=== PATIENT | female | born 1980 | race Two or more races ===

== ENCOUNTER 2019-02-10 11:51 | Emergency (ER) | payer MEDICAID ==
[~2019-02-10] VITALS: Ht 162.6 cm; Wt 70.3 kg
[2019-02-10 12:15] VITALS: BP 117/76
--- NOTE | 2019-02-10 12:41 | NUR ---
ED Nurse Note: pt A&Ox4 speaking in clear sentences walked in with son c/o epigastric pain and diahhrea ,chills for 2 days ermd eval done sl established ivf up infusing urine sent to lab ekg done will monitor.
[2019-02-10 12:59] LABS: APPEARANCE,URINE CLEAR; BILIRUBIN, URINE NEGATIVE (NEGATIVE); GLUCOSE, URINE (UA) NEGATIVE (NEGATIVE); KETONES,URINE 4+ (NEGATIVE); LEUKOCYTE ESTERASE ,URINE 1+ (NEGATIVE); NITRITE,URINE NEGATIVE (NEGATIVE); PH,URINE 5 (4.5-8.0); PROTEIN,URINE 2+ (NEGATIVE); UROBILINOGEN,URINE NORMAL MG/DL (0.0-1.0)
[2019-02-10 13:06] LABS: COLOR,URINE YELLOW
[2019-02-10] MEDS ORDERED: ZOFRAN4 M1 ORAL (14:09)
[2019-02-10] MEDS ORDERED: OMEPRAZOLE20 M2 ORAL (14:09)
--- NOTE | 2019-02-10 14:09 | Emergency Room Report ---
History of Present Illness General Chief Complaint: Abdominal Pain Source: Patient Present Illness HPI 38-year-old female with no significant past medical history here complaining of 2 days of epigastric abdominal pain and 3 bouts of nonbloody diarrhea and feeling nauseated. Patient reports that her symptoms started 30 minutes after eating chicken at the knees. Denies fever and chills, shortness of breath, chest pain, palpitation, recent travel. Denies any bloody emesis. Has not taken medication for relief of her symptoms. Has been taking oral hydration and been able to eat. Denies all other associated symptoms. Denies urinary symptoms and abdominal surgery Allergies: Coded Allergies: No Known Allergies (Unverified , 02/10/19) Patient History Past Medical History: see triage record Past Surgical History: unable to obtain Pertinent Family History: none Last Menstrual Period: 02/03/2019 Now: No Immunizations: UTD Reviewed Nursing Documentation: PMH: Agreed; PSxH: Agreed Nursing Documentation-PMH Past Medical History: No Stated History Review of Systems All Other Systems: negative except mentioned in HPI Physical Exam Vital Signs Date Time Temp Pulse Resp B/P (MAP) Pulse Ox O2 Delivery O2 Flow Rate FiO2 02/10/19 12:04 99.1 98 16 117/76 (90) 98 Room Air Sp02 EP Interpretation: reviewed, normal General Appearance: normal inspection, well appearing, no apparent distress, alert, GCS 15 Head: normocephalic, atraumatic Eyes: bilateral eye normal inspection, bilateral eye PERRL ENT: normal ENT inspection, hearing grossly normal, normal pharynx, no angioedema Neck: normal inspection, full range of motion, supple Respiratory: normal inspection, chest non-tender, lungs clear, no rhonchi Cardiovascular #1: normal inspection, regular rate, rhythm, no murmur Gastrointestinal: normal inspection, non tender, soft, no bruit, no guarding, no pulsatile mass, no rebound, other - Negative McBurney's and Rovsing's Genitourinary: no CVA tenderness Musculoskeletal: normal inspection, back normal Neurologic: normal inspection, alert, oriented x3, responsive Psychiatric: normal inspection, judgement/insight normal Skin: normal color, normal turgor Lymphatic: normal inspection, no adenopathy Medical Decision Making PA Attestation All my diagnosis and treatment plans were reviewed ad discussed with my supervising physician Dr. Murillo Diagnostic Impression: Primary Impression: Gastroenteritis ER Course 38-year-old female with no significant past medical history here complaining of 2 days of epigastric abdominal pain and 3 bouts of nonbloody diarrhea and feeling nauseated. Patient reports that her symptoms started 30 minutes after eating chicken at the knees. Denies fever and chills, shortness of breath, chest pain, palpitation, recent travel. Denies any bloody emesis. Has not taken medication for relief of her symptoms. Has been taking oral hydration and been able to eat. Denies all other associated symptoms. Denies urinary symptoms and abdominal surgery Ddx considered but are not limited to: appendicitis, cholycisitis, gastritis, gasthroentritis, UTI, pylonephritis, SBO, diverticulitis, influenza with GI manifestation, AK, Vital signs: are WNL, pt. is afebrile H&PE are most consistent with: Gastroenteritis ORDERS: UA, urine test, NS bolus ED INTERVENTIONS: NS bolus DISCHARGE: At this time pt. is stable for d/c to home. Will provide printed patient care instructions, and any necessary prescriptions. Care plan and follow up instructions have been discussed with the patient prior to discharge. This time no further indication for work-up for abdominal pain as this is secondary to food poisoning and patient to follow-up with her primary care provider is stable at time of discharge and feeling better after taking oral fluids as well as IV fluids if worsening symptoms return to the emergency room Last Vital Signs Date Time Temp Pulse Resp B/P (MAP) Pulse Ox O2 Delivery O2 Flow Rate FiO2 02/10/19 12:25 98 16 Room Air 02/10/19 12:15 99.1 117/76 98 Disposition: HOME, SELF-CARE Condition: Stable Scripts Omeprazole (OMEPRAZOLE) 20 Mg Capsule. 20 MG ORAL DAILY, #20 CAP Prov: Royer Crain 02/10/19 Ondansetron (Zofran) 4 Mg Tablet 4 MG ORAL Q6H PRN for Nausea & Vomiting, #10 TAB Prov: Royer Crain 02/10/19 Patient Instructions: Viral Gastroenteritis, Adult Additional Instructions: Increase oral hydration specially electrolyte water, keep BRAT diet consisting of banana, rice, applesauce, piece of toast avoid dairy products and meat, avoid spicy food. If diarrhea for 7 days follow-up with primary care provider for stool culture and further assessment. If fever and chills and worsening symptoms or blood in stool return to the emergency room Royer Crain Feb 10, 2019 14:09
--- NOTE | 2019-02-19 21:01 | Cardiology Report ---
APPROVED REPORT EKG Measurement Heart [id number] NM [id number] [id number] Normal sinus rhythm Prolonged QT Abnormal ECG
== END 2019-02-10 15:08 | disposition home or self-care (01) ==
LOC: EMR 12:16
DX: K52.9 Noninfective gastroenteritis and colitis, unspecified (principal)
CPT/HCPCS: 81001; 81025; 93005; 99283